=== PATIENT | female | born 1995 | race Caucasian/White ===

== ENCOUNTER → 2020-09-01 09:35 | Outpatient (CLI) | payer BC, SELFPAY ==
[2020-09-01 11:26] LABS: hCG Titer Quant., Serum 6 mIU/mL (1-3)
== END ==
PROVIDERS: PCP Family Medicine; Referring Provider Obstetrics & Gynecology; Visit Provider Obstetrics & Gynecology
DX: N91.2 Amenorrhea, unspecified (principal)
CPT/HCPCS: 36415; 84702

== ENCOUNTER → 2020-09-03 12:16 | Outpatient (CLI) | payer BC, SELFPAY ==
[2020-09-03 13:31] LABS: hCG Titer Quant., Serum 3 mIU/mL (1-3)
== END ==
PROVIDERS: PCP Family Medicine; Referring Provider Obstetrics & Gynecology; Visit Provider Obstetrics & Gynecology
DX: N91.2 Amenorrhea, unspecified (principal)
CPT/HCPCS: 36415; 84702

== ENCOUNTER → 2020-10-13 | Outpatient (CLI) | payer BC, SELFPAY ==
[2020-10-13 09:33] VITALS: BMI 26.4
[2020-10-17 16:43] LABS: HPV Reflexed? NOT INDICATED
== END | disposition home or self-care (01) ==
LOC: LABSPEC 16:32
PROVIDERS: PCP Family Medicine; Referring Provider Obstetrics & Gynecology; Visit Provider Obstetrics & Gynecology
DX: Z12.4 Encounter for screening for malignant neoplasm of cervix (principal)
CPT/HCPCS: 88175; G0145

== ENCOUNTER → 2021-05-11 12:20 | Outpatient (CLI) | payer BC, SELFPAY ==
[2021-05-11 13:38] LABS: hCG Titer Quant., Serum 462 mIU/mL (1-3)
== END ==
PROVIDERS: PCP Family Medicine; Referring Provider Obstetrics & Gynecology; Visit Provider Obstetrics & Gynecology
DX: Z34.90 Encounter for supervision of normal pregnancy, unspecified, unspecified trimester (principal)
CPT/HCPCS: 36415; 84702; 86850; 86900; 86901

== ENCOUNTER → 2021-05-13 12:18 | Outpatient (CLI) | payer BC, SELFPAY ==
[2021-05-13 13:56] LABS: hCG Titer Quant., Serum 1054 mIU/mL (1-3)
== END ==
PROVIDERS: PCP Family Medicine; Referring Provider Obstetrics & Gynecology; Visit Provider Obstetrics & Gynecology
DX: Z34.90 Encounter for supervision of normal pregnancy, unspecified, unspecified trimester (principal)
CPT/HCPCS: 36415; 84702

== ENCOUNTER → 2021-06-05 | Outpatient (CLI) | payer BC, SELFPAY ==
[2021-06-05 12:55] LABS: Amphetamine Urine VISTA NEGATIVE (<1000 ng/mL); Barbiturate Urine VISTA NEGATIVE (< 200 ng/mL); Benzodiazepine Urine VISTA NEGATIVE (< 200 ng/mL); Cocaine Urine VISTA NEGATIVE (< 300 ng/mL); Ecstacy Urine VISTA NEGATIVE (< 500 ng/mL); Methadone Urine VISTA NEGATIVE (< 300 ng/mL); PCP Urine VISTA NEGATIVE (< 25 ng/mL); THC Urine VISTA NEGATIVE (< 50 ng/mL); Vista UDS pH Range 7
[2021-06-08 01:06] LABS: Chlamydia By Nucleic Acid AMP Negative (Negative)
[2021-06-08 08:28] LABS: Gonococcus By Nucleic Acid AMP Negative (Negative)
== END | disposition home or self-care (01) ==
LOC: LABSPEC 12:12
PROVIDERS: PCP Family Medicine; Referring Provider Obstetrics & Gynecology; Visit Provider Obstetrics & Gynecology
DX: Z34.90 Encounter for supervision of normal pregnancy, unspecified, unspecified trimester (principal)
CPT/HCPCS: 80307; 87086; 87491; 87591

== ENCOUNTER → 2021-06-19 13:26 | Outpatient (CLI) | payer BC, SELFPAY ==
[2021-06-19 14:19] LABS: Absolute Lymphocyte Count 2.19 X10^3/uL (0.83-4.51); Absolute Neutrophil Count 6.3 X10^3/uL (2.0-7.7); Basophil# 0.04 X10^3/uL; Basophil% 0.4 % (0-1); Eosinophil# 0.08 X10^3/uL; Eosinophils% 0.9 % (0-5); Hematocrit 34.1 % (37-47); Hemoglobin 11.8 g/dL (12.0-15.0); Lymphocyte # 2.19 X10^3/ul (0.83-4.51); Lymphocyte % 24.3 % (19-41); Mean Corp Hgb Conc 34.6 g/dL (32-36); Mean Corpuscular Hgb 33.1 pg (27.0-32.0); Mean Corpuscular Volume 95.8 fL (81-99); Monocyte# 0.41 X10^3/uL; Monocyte% 4.5 % (0-10); NRBC Flagged by Analyzer 0 % (0-5); Neutrophil # 6.27 X10^3/uL (2.7-7.7); Neutrophil % 69.6 % (47-70); Platelet Count 255 K/mm3 (150-450); RBC Distribution Width CV 12.1 % (11.6-14.6); RBC Distribution Width SD 42.6 fl (35.1-43.9); Red Blood Count 3.56 M/mm3 (4.2-5.4)
[2021-06-19 14:37] LABS: NATERA MAILED SPECIMEN
[2021-06-19 15:36] LABS: HIV - WCH Non-Reactive (Nonreactive); Hepatitis B Surface Antigen Non-Reactive (Nonreactive); Hepatitis C Antibody Non-Reactive (Nonreactive); Rubella IgG Reactive (Nonreactive); Syphilis Antibodies Non-reactive
== END ==
PROVIDERS: PCP Family Medicine; Referring Provider Obstetrics & Gynecology; Visit Provider Obstetrics & Gynecology
DX: Z34.90 Encounter for supervision of normal pregnancy, unspecified, unspecified trimester (principal)
CPT/HCPCS: 36415; 85025; 86703; 86762; 86780; 86803; 86850; 86900; 86901; 87340

== ENCOUNTER 2021-10-23 12:18 | Outpatient (CLI) | payer BC, OTHER, SELFPAY ==
[2021-10-23 12:47] LABS: Absolute Lymphocyte Count 1.63 X10^3/uL (0.83-4.51); Absolute Neutrophil Count 6.4 X10^3/uL (2.0-7.7); Basophil# 0.03 X10^3/uL; Basophil% 0.3 % (0-1); Eosinophil# 0.16 X10^3/uL; Eosinophils% 1.8 % (0-5); Hematocrit 31.9 % (37-47); Hemoglobin 10.9 g/dL (12.0-15.0); Lymphocyte # 1.63 X10^3/ul (0.83-4.51); Lymphocyte % 18.6 % (19-41); Mean Corp Hgb Conc 34.2 g/dL (32-36); Mean Corpuscular Hgb 32.3 pg (27.0-32.0); Mean Corpuscular Volume 94.7 fL (81-99); Mean Platelet Vol. 9.9 fl (6.2-12.0); Monocyte# 0.48 X10^3/uL; Monocyte% 5.5 % (0-10); NRBC Flagged by Analyzer 0 % (0-5); Neutrophil # 6.41 X10^3/uL (2.7-7.7); Neutrophil % 73.1 % (47-70); Platelet Count 214 K/mm3 (150-450); RBC Distribution Width CV 13.9 % (11.6-14.6); Red Blood Count 3.37 M/mm3 (4.2-5.4); White Blood Count 8.8 K/mm3 (4.4-11.0)
[2021-10-23 13:01] LABS: Glucose Challenge Gest 1H 50g 145 mg/dL (70-140)
== END 2021-10-23 23:59 | disposition home or self-care (01) ==
LOC: LAB 12:20
PROVIDERS: PCP Family Medicine; Visit Provider Obstetrics & Gynecology
DX: O36.0990 Maternal care for other rhesus isoimmunization, unspecified trimester, not applicable or unspecified (principal)
CPT/HCPCS: 36415; 82950; 85025; 86850; 86900; 86901

== ENCOUNTER 2021-10-26 06:49 | Outpatient (CLI) | payer BC, OTHER, SELFPAY ==
[2021-10-26 07:48] LABS: Glucose GTT-Gestation. Fasting 73 mg/dL (<105)
[2021-10-26 08:42] LABS: Glucose GTT-Gestational 1 Hr 192 mg/dL (<190)
[2021-10-26 10:18] LABS: Glucose GTT-Gestational 2 Hr 168 mg/dL (<165)
[2021-10-26 10:50] LABS: Glucose GTT-Gestational 3 Hr 121 L (<145)
== END 2021-10-26 23:59 | disposition home or self-care (01) ==
LOC: LAB 06:50
PROVIDERS: PCP Family Medicine; Referring Provider Obstetrics & Gynecology; Visit Provider Obstetrics & Gynecology
DX: O99.810 Abnormal glucose complicating pregnancy (principal)
CPT/HCPCS: 36415; 82951; 82952

== ENCOUNTER 2021-11-03 08:10 | Outpatient (RCR) | payer BC, OTHER, SELFPAY | END 2021-11-12 23:59 | LOC: NS 08:10 | PROVIDERS: PCP Family Medicine; Referring Provider Nurse Practitioner Women's Health; Visit Provider Nurse Practitioner Women's Health | DX: Z71.3 Dietary counseling and surveillance (principal); O24.419 Gestational diabetes mellitus in pregnancy, unspecified control; Z3A.00 Weeks of gestation of pregnancy not specified | CPT/HCPCS: 97802 ==

== ENCOUNTER 2021-11-20 07:42 | Outpatient (CLI) | payer BC, OTHER, SELFPAY ==
--- NOTE | 2021-11-20 07:46 | US_ITS ---
STUDY: SECOND AND THIRD TRIMESTER OBSTETRICAL ULTRASOUND - LIMITED REASON FOR EXAM: Female, 26 years old growth LMP: 04/09/2021. PRIOR ULTRASOUND: None. TECHNIQUE: Transabdominal TECHNICAL QUALITY: Adequate. FINDINGS: There is a single intrauterine fetus. The fetus is in a cephalic presentation. There is demonstrated cardiac activity with a heart rate of 145 bpm. There is a normal amniotic fluid volume. The largest amniotic fluid pocket measures 5.1 cm. The amniotic fluid index (AUSTIN) is 18.9 cm. The placenta is anterior in location and is not low lying. There are Grade 1 placental changes. The cervix measures 4.5 cm in length. BIOMETRY: BPD: 8.6 cm: 34 weeks, 5 days HC: 30.7 cm: 34 weeks, 1 days AC: 29.6 cm: 33 weeks, 3 days FL: 6.3 cm: 32 weeks, 2 days Age by LMP: 32 weeks, 1 days. OLGA by LMP: 01/15/2020. age by current US: 33 weeks, 3 days. OLGA by current US: 01/05/2022. Estimated weight: 2210 grams, +/- 331 grams, 81 percentile. US/OB Limited With Biometrics IMPRESSION: Single live intrauterine gestation with a mean gestational age of 33 weeks and 3 days. Electronically Signed: Jacob Walker MD at 9:01 EDT ,
== END 2021-11-20 23:59 | disposition home or self-care (01) ==
LOC: OPUS 07:45
PROVIDERS: PCP Family Medicine; Visit Provider Obstetrics & Gynecology
DX: O98.519 Other viral diseases complicating pregnancy, unspecified trimester (principal); U07.1 COVID-19
CPT/HCPCS: 76816

== ENCOUNTER 2021-11-30 08:30 | Outpatient (RCR) | payer BC, OTHER, SELFPAY | END 2021-12-12 23:59 | LOC: DC 08:30 | PROVIDERS: PCP Family Medicine; Referring Provider Nurse Practitioner Women's Health; Visit Provider Nurse Practitioner Women's Health | DX: Z71.3 Dietary counseling and surveillance (principal); O24.419 Gestational diabetes mellitus in pregnancy, unspecified control | CPT/HCPCS: 97803 ==

== ENCOUNTER → 2021-12-17 | Outpatient (CLI) | payer BC, OTHER, SELFPAY ==
--- NOTE | 2021-12-17 08:47 | US_ITS ---
STUDY: SECOND AND THIRD TRIMESTER OBSTETRICAL ULTRASOUND - LIMITED REASON FOR EXAM: Female, 26 years old growth LMP: 04/09/2021. PRIOR ULTRASOUND: Comparison is made with prior study dated 11/20/2021. TECHNIQUE: Transabdominal TECHNICAL QUALITY: Adequate. FINDINGS: There is a single intrauterine fetus. The fetus is in a cephalic presentation. There is demonstrated cardiac activity with a heart rate of 144 bpm. There is a normal amniotic fluid volume. The largest amniotic fluid pocket measures 4.8 cm. The amniotic fluid index (AUSTIN) is 13.3 cm. The placenta is anterior in location and is not low lying. There are Grade 2 placental changes. The cervix was not measured due to head position. BIOMETRY: BPD: 9.2 cm: 37 weeks, 2 days HC: 33.5 cm: 30 weeks, 2 days AC: 32.6 cm: 36 weeks, 3 days FL: 7.1 cm: 36 weeks, 1 days Age by LMP: 36 weeks, 0 days. OLGA by LMP: 01/14/2022. age by prior US: 37 weeks, 2 days. OLGA by prior US: 01/05/2022. age by current US: 37 weeks, 0 days. OLGA by current US: 01/07/2022. Estimated weight: 3017grams, +/- 453 grams, 71 percentile. US/OB Limited With Biometrics IMPRESSION: Single live intrauterine gestation with a mean gestational age of 37 weeks and 2 days. Measurements obtained today fall within the normal expected range. Electronically Signed: Jacob Walker MD at 10:40 EDT ,
== END | disposition home or self-care (01) ==
LOC: OPUS 08:46
PROVIDERS: PCP Family Medicine; Visit Provider Obstetrics & Gynecology
DX: O98.519 Other viral diseases complicating pregnancy, unspecified trimester (principal); U07.1 COVID-19
CPT/HCPCS: 76816

== ENCOUNTER → 2021-12-18 | Outpatient (CLI) | payer BC, OTHER, SELFPAY | END | disposition home or self-care (01) | PROVIDERS: PCP Family Medicine; Visit Provider Obstetrics & Gynecology | DX: Z34.90 Encounter for supervision of normal pregnancy, unspecified, unspecified trimester (principal) | CPT/HCPCS: 87081 ==

== ENCOUNTER 2022-01-14 18:35 | Inpatient (IN) | payer BC, OTHER, SELFPAY ==
[2022-01-14] VITALS (31 sets, daily range): BP systolic 92–131; BP diastolic 51–79; PULSE 87–107; TEMP 36.6–37.1; O2SAT 85–100; BMI 27.6
--- NOTE | 2022-01-14 17:19 | OB.TRI.PN_ITS ---
Progress Notes Date of Service: 01/14/22 Progress Note: Patient presents for triage evaluation secondary to contractions FHT: 130 Moderate variability reactive no decelerations category I tracing [place]: irregular Contractions Assessment and plan: false labor Reactive NST, reassuring maternal and status patient discharged to home to follow-up for IOL tomorrow. See problem list details for additional plan information. Charges/Coding Procedures Urinary/Genital [id number]: 40199-83 non-stress test Interp
[2022-01-14] MEDS: Lactated Ringers 500 ML 999 ML IV (18:45)
[2022-01-14 19:01] LABS: Absolute Lymphocyte Count 0.85 X10^3/uL (0.83-4.51); Absolute Neutrophil Count 10.9 X10^3/uL (2.0-7.7); Basophil# 0.02 X10^3/uL; Basophil% 0.2 % (0-1); Eosinophil# 0.01 X10^3/uL; Eosinophils% 0.1 % (0-5); Hematocrit 42.5 % (37-47); Hemoglobin 14.5 g/dL (12.0-15.0); Lymphocyte # 0.85 X10^3/ul (0.83-4.51); Mean Corp Hgb Conc 34.1 g/dL (32-36); Mean Corpuscular Hgb 33.1 pg (27.0-32.0); Mean Platelet Vol. 10.8 fl (6.2-12.0); Monocyte# 0.33 X10^3/uL; Monocyte% 2.7 % (0-10); NRBC Flagged by Analyzer 0 % (0-5); Neutrophil # 10.87 X10^3/uL (2.7-7.7); Neutrophil % 89.6 % (47-70); Platelet Count 202 K/mm3 (150-450); RBC Distribution Width SD 46.6 fl (35.1-43.9); Red Blood Count 4.38 M/mm3 (4.2-5.4); White Blood Count 12.1 K/mm3 (4.4-11.0)
[2022-01-14 19:06] LABS: Bedside Glucose 91 mg/dL (74-106)
[2022-01-14] MEDS: Lactated Ringers 1,000 ML 200 ML IV ×2 (19:20→22:40)
[2022-01-14] MEDS: fentaNYL-bupivacaine (epidural) 100 ML BAG EPIDURAL (19:48)
--- NOTE | 2022-01-14 20:37 | HP.PCM.OB_ITS ---
HPI - General General Date of Admission: 01/14/22 HPI Narrative SURY KUMAR, is a 26 F who presents IAL 5 cm dilated regular ctx no vb lof admits good fm Maternal Data Information OLGA Calculator Estimated Delivery Date Method Current WG Current Estimate 01/14/22 Ultrasound #1 40w 0d Other Estimates 01/06/22 LMP (Certain) 41w 1d PFSH PFSH Medical History Lab test positive for detection of COVID-19 virus Home Medications multivitamin no.47-iron fum 27 mg-folate no.1 1 mg-dha 300 mg capsule 1 cap PO DAILY 05/22/21 [History Last Taken 01/13/22 21:00] Allergy/AdvReac Type Severity Reaction Status Date / Time No Known Allergies Allergy Verified 01/08/22 16:08 Family History Grandfather Diabetes Father Hypertension Surgical History H/O wisdom tooth extraction History of tonsillectomy Social History household members: spouse housing: house current occupational status: employed current occupation: [employer] Smoking Status: Never smoker second hand exposure: No alcohol intake: current details: social substance use type: does not use caffeine: Yes what type of physical activity do you participate in: walking seatbelt use: always do you feel safe at home: Yes 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 History 2 Elective abortions Hx Para 0 Spontaneous abortions 1 Hx # Term Pregnancies Ectopic pregnancies Hx # Pregnancies Multiple births # of living children 0 Visit Details Expected Delivery Route/Plan Labor Preferences- CB/BF classes: signed up labor support person: Jack labor intervention preferences: minimal if able pain management options preferred: minimal but open to anything, no issues with epidural cut cord/dad catch: yes : yes PP control planned: discussed possible routes of delivery and associated risks: discussed possible delivery modalities and possible indications for each including R/B/A of , VAVD, and CS. questions answered. special requests: Plans Covid status: counseled regarding risk of covid in vs vaccination and declined vaccination Flu vaccine: given Tdap vaccine: given Rhogam: given LARC form signed: declined movement and labor precautions reviewed. Problem list reviewed and updated with the most current plan of care details and appropriate orders placed. Relevant counseling for the gestational age provided. Continue routine care and follow up unless otherwise noted in visit notes/problem list details OB Flowsheet Initial Weight: 130 lb Date -?-?-?-?-?-?-?-?-?-?-?-?- EGA Weight BP Urine Prot -?-?-?-?-?-?-?-?-?-?-?-?- Glucose FHR FuHt Pres Dilation -?-?-?-?-?-?-?-?-?-?-?-?- Effaced St Visit Note 06/05/21 -?-?-?-?-?-?-?-?-?-?-?-?- 8w 1d 132 lb (+2 lb) 114/66 -?-?-?-?-?-?-?-?-?-?-?-?- 160 -?-?-?-?-?-?-?-?-?-?-?-?- SM- crl NOT con with lmp 1.5 cm 06/26/21 -?-?-?-?-?-?-?-?-?-?-?-?- 11w 1d 132 lb 6 oz (+2 lb 6 oz) 110/68 Negative -?-?-?-?-?-?-?-?-?-?-?-?- Negative 168 -?-?-?-?-?-?-?-?-?-?-?-?- JV- normal nater a. no lof ,vaginal bleeding, or spotting, 07/24/21 -?-?-?-?-?-?-?-?-?-?-?-?- 15w 1d 134 lb (+4 lb) 100/60 Negative -?-?-?-?-?-?-?-?-?-?-?-?- Negative 147 -?-?-?-?-?-?-?-?-?-?-?-?- JV- pt had covid since last seen. now on baby asa, plan for anatomy scan on 08/20. then growth scans at 32 and 36 weeks. 08/21/21 -?-?-?-?-?-?-?-?-?-?-?-?- 19w 1d 135 lb (+5 lb) 94/58 Negative -?-?-?-?-?-?-?-?-?-?-?-?- Negative 145 -?-?-?-?-?-?-?-?-?-?-?-?- JV- pt is having a hard time sleeping. anatomy scan reviewed ad is normal. 09/18/21 -?-?-?-?-?-?-?-?-?-?-?-?- 23w 1d 142 lb 6 oz (+12 lb 6 oz) 96/70 Negative -?-?-?-?-?-?-?-?-?-?-?-?- Negative 149 -?-?-?-?-?-?-?-?-?-?-?-?- JV- no lof, vagi nal bleeding, and + FM 10/23/21 -?-?-?-?-?-?-?-?-?-?-?-?- 28w 1d 143 lb (+13 lb) 97/68 Negative -?-?-?-?-?-?-?-?-?-?-?-?- Negative 145 28 -?-?-?-?-?-?-?-?-?-?-?-?- Sm- no vb lof go od fm, no regular ctx 10/26/21 -?-?-?-?-?-?-?-?-?-?-?-?- 28w 4d 141 lb 4 oz (+11 lb 4 oz) -?-?-?-?-?-?-?-?-?-?-?-?- -?-?-?-?-?-?-?-?-?-?-?-?- 10/30/21 -?-?-?-?-?-?-?-?-?-?-?-?- 29w 1d 141 lb (+11 lb) 102/70 Negative -?-?-?--?-?-?-?-?-?-?-?-?- Negative 140 30 -?-?-?-?-?-?-?-?-?-?-?-?- SM- no vb lof go od fm no reuglar ctx discussed BS well controlled already, has nutrition and endocrine appointments scheduled 11/13/21 -?-?-?-?-?-?-?-?-?-?-?-?- 31w 1d 145 lb (+15 lb) 118/60 Negative -?-?-?-?-?-?-?-?-?-?-?-?- Negative 134 31 -?-?-?-?-?-?-?-?-?-?-?-?- JV- no fluid on exam. pt was leaking last night but only for a brief moment, 11/27/21 -?-?-?-?-?-?-?-?-?-?-?-?- 33w 1d 144 lb 6 oz (+14 lb 6 oz) 104/70 Negative -?-?-?-?-?-?-?-?-?-?-?-?- Negative 135 33 -?-?-?-?-?-?-?-?-?-?-?-?- SM- no vb lof go od fm n oreular ctx. BS controlled with diet 12/11/21 -?-?-?-?-?-?-?-?-?-?-?-?- 35w 1d 145 lb (+15 lb) 112/62 Negative -?-?--?-?-?-?-?-?-?-?-?-?- Negative 135 35 -?-?-?-?-?-?-?-?-?-?-?-?- Sm- no vb lof go od fm n oregulr ctx discussed cb classes 12/18/21 -?-?-?-?-?-?-?-?-?-?-?-?- 36w 1d 145 lb 4 oz (+15 lb 4 oz) 114/80 Negative -?-?-?-?-?-?-?-?-?-?-?-?- Negative 145 36 -?-?-?-?-?-?-?-?-?-?-?-?- JV-no lof, vagin al bleeding, or dec fm. GBS collected. 12/25/21 -?-?-?-?-?-?-?-?-?-?-?-?- 37w 1d 144 lb 4 oz (+14 lb 4 oz) 100/72 Negative -?-?-?-?-?-?-?-?-?-?-?-?- Negative 145 37 0 -?-?-?-?-?-?-?-?-?-?-?-?- JV- GBS neg. no lof, vaginal bleeding, or dec fm. no complaints. 01/01/22 -?-?-?-?-?-?-?-?-?-?-?-?- 38w 1d 146 lb (+16 lb) 120/67 -?-?-?-?-?-?-?-?-?-?-?-?- 140 38 Cephalic 0.5 -?-?-?-?-?-?-?-?-?-?-?--?- 50 -2 SM- no vb lof good fm n oregualr ctx 01/08/22 -?-?-?-?-?-?-?-?-?-?-?-?- 39w 1d 149 lb (+19 lb) 118/70 Negative -?-?-?-?-?-?-?-?-?-?-?-?- Negative 145 39 Cephalic 1 -?-?-?-?-?-?-?-?-?-?-?-?- 50 -2 JV- no lof , vaginal bleeding, or dec fm. plan for IOL at 40 weeks. 01/14/22 -?-?-?-?-?-?-?-?-?-?-?-?- 40w 0d 146 lb 6.191 oz (+16 lb 6.191 oz) 122/79 128/72 107/54 100/51 92/53 97/61 96/59 98/53 103/56 100/57 101/58 -?-?-?-?-?-?-?-?-?-?-?-?- -?-?-?-?-?-?-?-?-?-?-?-?- NST FHR Rate Baby A Baseline: 140 Variability:: Moderate Accelerations:: 15 x 15 Decelerations:: None NST Reactive:: Yes FHR Category:: Category I Uterine Activity:: q3-5 ROS Constitutional Constitutional: Reports systems reviewed and no addt'l complaints, except as documented ENT HEENT: Reports systems reviewed and no addt'l complaints, except as documented Cardiovascular Cardiovascular: Reports systems reviewed and no addt'l complaints, except as documented Respiratory/Chest Respiratory/Chest: Reports systems reviewed and no addt'l complaints, except as documented Gastrointestinal Gastrointestinal: Reports systems reviewed and no addt'l complaints, except as documented and nausea; Denies abdominal pain Genitourinary Genitourinary: Reports systems reviewed and no addt'l complaints, except as documented, contractions Details: present and frequency (regular ) and movement Details: present Musculoskeletal Musculoskeletal: Reports systems reviewed and no addt'l complaints, except as documented Integumentary Integumentary: Reports as per HPI Neurologic Neurologic: Reports systems reviewed and no addt'l complaints, except as documented Endocrine Endocrinology: Reports systems reviewed and no addt'l complaints, except as docu mented Vital Signs Vital Signs Vital Signs: 01/14/22 10:49 01/14/22 10:50 01/14/22 18:44 Temperature 97.9 F 98.3 F Temperature Source Temporal Pulse Rate 89 Blood Pressure 122/79 H BP Systolic 122 BP Diastolic 79 Pulse Ox 96 01/14/22 19:00 01/14/22 19:05 01/14/22 19:10 Temperature Temperature Source Pulse Rate 94 89 96 Blood Pressure BP Systolic BP Diastolic Pulse Ox 97 99 99 01/14/22 19:11 01/14/22 19:15 01/14/22 19:20 Temperature Temperature Source Pulse Rate 95 89 100 Blood Pressure 128/72 H BP Systolic 128 BP Diastolic 72 Pulse Ox 98 100 01/14/22 19:23 01/14/22 19:25 01/14/22 19:30 Temperature Temperature Source Pulse Rate 91 105 H 104 H Blood Pressure 107/54 L 100/51 L 92/53 L BP Systolic 107 100 92 BP Diastolic 54 51 53 Pulse Ox 99 98 01/14/22 19:35 01/14/22 19:37 01/14/22 19:40 Temperature Temperature Source Pulse Rate 101 H 100 94 Blood Pressure 97/61 96/59 L BP Systolic 97 96 BP Diastolic 61 59 Pulse Ox 97 97 01/14/22 19:45 01/14/22 19:50 01/14/22 19:52 Temperature Temperature Source Pulse Rate 96 97 90 Blood Pressure 98/53 L 103/56 L BP Systolic 98 103 BP Diastolic 53 56 Pulse Ox 99 99 01/14/22 19:55 01/14/22 20:00 01/14/22 20:05 Temperature Temperature Source Pulse Rate 97 93 93 Blood Pressure 100/57 L BP Systolic 100 BP Diastolic 57 Pulse Ox 100 97 97 01/14/22 20:10 01/14/22 20:28 Temperature Temperature Source Pulse Rate 93 87 Blood Pressure 101/58 L BP Systolic 101 BP Diastolic 58 Pulse Ox 100 Weight Weight: 146 lb 6.191 oz Body Mass Index (BMI) 27.6 Physical Exam Const alert, oriented x3 and healthy appearing Constitutional Narrative: uncomfortable with contractions HEENT normocephalic and moist oral mucous membranes Head and Scalp: atraumatic Neck full ROM, no lymphadenopathy, supple and thyroid normal General: trachea midline Thyroid: thyroid normal Lymph Lymphatic: no lymphadenopathy noted Chest inspection of chest normal Resp normal respiratory effort Cardio regular rate GI normal to inspection, nondistended, normoactive bowel sounds, soft to palpation and non-tender Inspection: gravid external exam normal Bimanual Exam - Vag & Uterus: uterus non-tender Manual OB Exam: estimated gestational size appropriate, presentation cephalic, dilated, effaced and station Extremity normal to inspection General Extremity: Negative for edema Skin no rashes or lesions noted Neuro deep tendon reflexes 2+ bilaterally Motor Exam: strength 5/5 throughout and clonus absent Psych mental status grossly normal Labs Labs Labs: Blood Type O NEGATIVE Antibody Screen NEGATIVE Hct 42.5 % (37-47) Hgb 14.5 g/dL (12.0-15.0) Pap Smear Negative Obstetrics US Syphilis Total Ab Non-reactive Rubella IgG Antibody Reactive (Nonreactive) Hep Bs Antigen Non-Reactive (Nonreactive) Chlamydia DNA (KARENA) Negative (Negative) Neisseria gonorrhoeae DNA (KARENA) Negative (Negative) HIV 1&2 Antibody Non-Reactive (Nonreactive) Glucose 1 Hr 50 gm 145 mg/dL (70-140) H Assessment & Plan (1) : QUALIFIERS: Weeks of gestation: 37 weeks Qualified Code(s): Z3A.37 - 37 weeks gestation of COMMENT: GBS negative, genetic low risk- does not want to know gender and carrier. Anatomy US normal (2) Supervision of normal : COMMENT: PRR OLGA: 01/14/22 surprise Spouse: Jack (3) Rh negative status during : COMMENT: O neg- RHOGAM PRN & 28 weeks (4) Lab test positive for detection of COVID-19 virus: COMMENT: daily asa and growth US 32 & 36 wk, nl growth US (5) Gestational diabetes: QUALIFIERS: Gestational diabetes mellitus control: diet-controlled Trimester: third trimester Qualified Code(s): O24.410 - Gestational diabetes mellitus in , diet controlled COMMENT: endocrine cs. diet controlled. (6) Active labor at term: PLAN: Patient presents IAL, plan expectant management for , pitocin PRN. arom meconium fluid Pain management: plans epidural. GBS neg. Management of any complications: diabetes- check BS q 1 hr I have reviewed the PFS and made any clinically relevant updates.
[2022-01-14 21:16] LABS: Bedside Glucose 91 mg/dL (74-106)
[2022-01-14 22:35] LABS: Bedside Glucose 85 mg/dL (74-106)
[2022-01-14] MEDS: Lactated Ringers 500 ML 200 ML IV (23:15)
[2022-01-14 23:45] LABS: Bedside Glucose 86 mg/dL (74-106)
[2022-01-15] VITALS (26 sets, daily range): BP systolic 102–125; BP diastolic 42–78; PULSE 80–114; RESP 16–17; TEMP 36.3–36.9; O2SAT 97–100
[2022-01-15 00:35] LABS: Bedside Glucose 93 mg/dL (74-106)
[2022-01-15 01:25] LABS: Bedside Glucose 96 mg/dL (74-106)
[2022-01-15] MEDS: Oxytocin 30 units/NS 500 ml 30 UNITS/500 ML IV.SOLN IV (01:29)
[2022-01-15] MEDS: fentaNYL-bupivacaine (epidural) 100 ML BAG EPIDURAL (01:30)
[2022-01-15] MEDS: Lactated Ringers 500 ML 200 ML IV (02:02)
[2022-01-15 04:11] LABS: Bedside Glucose 87 mg/dL (74-106)
[2022-01-15 04:11] LABS: Bedside Glucose 83 mg/dL (74-106)
--- NOTE | 2022-01-15 04:47 | EX.PCM.OBRPT ---
Assessment & Plan (1) Gestational diabetes: QUALIFIERS: Gestational diabetes mellitus control: diet-controlled Trimester: third trimester Qualified Code(s): O24.410 - Gestational diabetes mellitus in , diet controlled COMMENT: endocrine cs. diet controlled. (2) Rh negative status during : COMMENT: O neg- RHOGAM PRN & 28 weeks (3) Supervision of normal : COMMENT: PRR OLGA: 01/14/22 surprise Spouse: Jack (4) : QUALIFIERS: Weeks of gestation: 37 weeks Qualified Code(s): Z3A.37 - 37 weeks gestation of COMMENT: GBS negative, genetic low risk- does not want to know gender and carrier. Anatomy US normal (5) Lab test positive for detection of COVID-19 virus: COMMENT: daily asa and growth US 32 & 36 wk, nl growth US (6) Active labor at term: (7) Vaginal delivery: COMMENT: SM IAL 40 GDMA1 Maternal Data Information OLGA Calculator Estimated Delivery Date Method Current WG Current Estimate 01/14/22 Ultrasound #1 40w 1d Other Estimates 01/06/22 LMP (Certain) 41w 2d Vaginal Delivery Operative Information Date of Procedure: 01/15/22 Pre-Operative Diagnosis: IAL Post-Operative Diagnosis: same Surgery / Procedure Performed: Spontaneous Vaginal Delivery Type of Anesthesia: Epidural Special Medications: none Estimated Blood Loss: 100 Fluids Replaced: crystalloid Findings Description of Procedure: Patient began pushing and delivered the head in the CARYL presentation. The head was delivered atraumatically and a loose nuchal cord ?1 was identified and the infant delivered through without complication. The anterior and posterior shoulders delivered without complication followed by the rest of the and the was placed on the maternal abdomen. Delayed cord clamping was employed for approximately 60 seconds. Cord was clamped and cut and gentle traction was applied to the cord and the placenta delivered spontaneously immediately following it was noted to be intact with three-vessel cord. The perineum and vagina were inspected and noted to have a first degree laceration repaired in the usual fashionw ith 3-0 rapide. EBL was 100 cc. Patient and tolerated delivery well. Presentation: CARYL Amniotic Membrane Rupture Type: Artificial Amniotic Fluid Description: Clear Placental Delivery Description: Spontaneous Placenta Disposition: [facility] Cord Vessel Description: 3 Vessels Cord Entanglement: Around neck x 1, loose Delayed Cord Clamping: Yes Post Vaginal Delivery Medications Given After Delivery: IV Pitocin Episiotomy Description: Perineal Extension/lac and 1st degree Laceration: None Complication Complications: None Procedures Urinary/Genital 52xxx-59xxx: [id number] Vaginal Delivery [facility]
--- NOTE | 2022-01-15 04:50 | PCM.DC ---
Discharge Instructions Diet Discharge Diet: No restrictions Activity Discharge Activity: Return to Normal Activity, May Not Drive (while taking narcotic pain medications.) and May Shower May resume sexual activity in: 4-6 weeks Dressing / Incision Call your doctor if your incision/area has: Continuous Slow Oozing, Sudden Increased Bleeding, Increased Pain/ Swelling, Increased Redness and Foul Smelling Discharge Follow Up Care Please Follow Up With: Cynthia Okeefe MD When: Call [phone] to make an appointment with your doctor in 6 weeks. If you had elevated blood pressure or 4th degree laceration, you will need to be seen in 2 weeks. Test Results: Test results from this visit will be discussed in further detail at your follow-up appointment, if applicable. Discharge Plan Admission Admit Date/Time: 01/14/22 18:35 Attending Provider: Cynthia Okeefe Primary Care Provider: Fantasma Figueroa Instructions Patient Instructions: Kick Counts, ED False Labor, OB Triage: Return to Hospital or Notify Physician if you Experience: Discharge Orders/Prescriptions Prescriptions: No Action PNV-DHA 27 mg iron-1 mg -300 mg capsule 1 cap PO DAILY RF: 0 Referrals / Follow Up: Fantasma Figueroa MD [Primary Care Provider] - Disposition Disposition (needs filled in before D/C Order can be placed): Home, Self Care
[2022-01-15] MEDS: Oxytocin 30 units/NS 500 ml 30 UNITS/500 ML IV.SOLN 334 UNITS IV (05:15)
[2022-01-15 05:51] LABS: Bedside Glucose 93 mg/dL (74-106)
[2022-01-15 05:51] LABS: Bedside Glucose 87 mg/dL (74-106)
[2022-01-15] MEDS: 0.9% Saline Lock 10 ML Syringe IV (08:07)
[2022-01-15] MEDS: Senna/Docusate Sodium 1 Tablet PO (12:56)
[2022-01-15] MEDS: Naproxen 500 MG Tablet PO (12:56)
[2022-01-15] MEDS: Dibucaine 30 GM Tube 1 APPLIC TOPICAL (12:56)
[2022-01-16] MEDS: Naproxen 500 MG Tablet PO ×2 (00:17→08:28)
[2022-01-16 00:18] VITALS: BP 104/63; PULSE 84; RESP 16; TEMP 36.6
[2022-01-16 03:44] VITALS: BP 104/63; PULSE 83; RESP 16; TEMP 36.6
[2022-01-16 06:00] LABS: Bedside Glucose 74 mg/dL (74-106)
[2022-01-16 08:15] VITALS: BP 96/51; PULSE 84; RESP 16; TEMP 35.9
--- NOTE | 2022-01-16 09:52 | PCM.PN.OB ---
Subjective Subjective Patient doing well without complaints. Tolerating PO. Ambulating and voiding without difficulty. Feeding well. Denies chest pain, shortness of breath, calf pain/swelling, fevers, chills, lightheadedness. Objective Data Objective Data Vital Signs: Vital Signs Temp Pulse Resp BP Pulse Ox 96.7 F L 84 16 96/51 L 98 01/16/22 08:15 01/16/22 08:15 01/16/22 08:15 01/16/22 08:15 01/15/22 15:47 Oxygen Delivery Method Room Air Weight: 146 lb 6.191 oz Body Mass Index (BMI) 27.6 Intake & Output: Intake and Output for Last 24 Hours 01/14/22 01/15/22 01/16/22 23:59 23:59 23:59 Intake Total 1500.00 / 1500.00 2501.73 / 2501.73 Output Total 400 / 400 1650 / 1650 Balance 1100.00 / 1100.00 851.73 / 851.73 Lab / Micro Data Result Diagrams: 01/14/22 18:45 Labs: Laboratory Results - last 24 hr 01/16/22 05:49: POC Glucose 74 Micro: Microbiology 01/14/22 18:45 Nasal Secretion SARS-CoV-2 Antigen (Rapid) - Final ROS Constitutional Constitutional: Denies chills, fatigue, fever(s), poor appetite or weakness Eyes Eyes: Denies blurry vision, change in vision, seeing flashes or spots in vision ENT HEENT: Denies dizziness, headache(s), loss taste/smell or sore throat Cardiovascular Cardiovascular: Denies chest pain, dizziness, dyspnea, irregular heart rhythm, palpitations or rapid heart rate Respiratory/Chest Respiratory/Chest: Denies chest tightness, cough, dyspnea or breast pain Gastrointestinal Gastrointestinal: Denies abdominal pain, constipation or vomiting Genitourinary Genitourinary: Denies dysuria or flank pain Musculoskeletal Musculoskeletal: Denies difficulty walking, joint pain, limited range of motion or numbness Neurologic Neurologic: Denies abnormal movements, abnormal speech, dizziness, numbness, seizure-like activity or syncope Psychiatric Psychiatric: Denies anxiety, behavioral changes, change in appetite, confusion, depression or suicidal thoughts Physical Exam Const alert, oriented x3 and no apparent distress General Appearance: cooperative and comfortable Resp normal respiratory effort Cardio regular rate GI normal to inspection, nondistended, normoactive bowel sounds GI Narrative: uterus is firm below umbilicus Palpation: soft Bimanual Exam - Adnexa, Other: Negative for cul-de-sac fullness Back/Spine no CVA tenderness and thoraco-lumbar ROM normal Extremity normal to inspection, no clubbing, cyanosis or edema, no calf tenderness and no pedal edema Psych mental status grossly normal, thought process normal, cooperative, affect normal, speech normal, activity/motor behavior normal, denies homicidal ideation and denies suicidal ideation Assessment & Plan (1) Vaginal delivery: COMMENT: IAL 40 GDMA1 (2) Gestational diabetes: QUALIFIERS: Gestational diabetes mellitus control: diet-controlled Trimester: third trimester Qualified Code(s): O24.410 - Gestational diabetes mellitus in , diet controlled COMMENT: endocrine cs. diet controlled. (3) Rh negative status during : COMMENT: O neg- RHOGAM PRN & 28 weeks PLAN: s/p PPD # 1 1. routine post delivery care 2. breast feeding- support given 3. rh positive 4. rubella immune 5. pt would like to be discharge to home today
[2022-01-16 14:00] VITALS: BP 110/57; PULSE 80; RESP 16; TEMP 35.9
== END 2022-01-16 14:25 | disposition home or self-care (01) | DRG 807 ==
PROVIDERS: Admitting Provider Obstetrics & Gynecology; PCP Family Medicine; Referring Provider Obstetrics & Gynecology; Visit Provider Obstetrics & Gynecology
DX: O24.420 Gestational diabetes mellitus in childbirth, diet controlled (principal); Z37.0 Single live birth; O69.81X0 Labor and delivery complicated by cord around neck, without compression, not applicable or unspecified; Z3A.37 37 weeks gestation of pregnancy; O70.0 First degree perineal laceration during delivery; Z86.16 Personal history of COVID-19
CPT/HCPCS: 59025; 59050; 82962; 85025; 86850; 86900; 86901; 87811; 99218; J7120; A4216; G0378

== ENCOUNTER 2022-09-30 12:30 | Outpatient (RCR) | payer BC, OTHER, SELFPAY ==
--- NOTE | 2022-07-30 08:42 | HP.PTEVAL_ITS ---
Patient's Visit Information SURY KUMAR is a 27 year old F referred to Physical Therapy by Dr. Cynthia Okeefe MD with a diagnosis of PELVIC FLOOR DYSFUNCTION/DISORDER OF MUSCLE. Date of Evaluation: 07/30/22 Physical Therapist: Carmelita Martinez, PT, Cert MDT - Visit Plan Frequency: 1x/Week Duration: 8-10 Plan: *CHECK AUTH*. PELVIC FLOOR STRENGTHENING. URINARY RETENTION, URGE AND FREQUENCY EDUCATION. HEALTHY BLADDER HABBIT EDUCATION. TRAINING IN COORDINATION OF PELVIC FLOOR MUSCULATURE WITH HIP AND CORE (TRANSVERSE ABDOMINUS) MUSCULATURE. POSTURE CORRECTION/STRENGTHENING. CORE STRENGTHENING. GODWIN LE ROM, STRETCHING AND STRENGTHENING. TRAINING IN ABDOMINAL CAVITY PRESSURE MGMT WITH ADL'S. 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 Present symptoms: PATIENT REPORTS SHE IS HERE DUE TO HAVING A LOT OF LEAKING. WAS REALLY BAD FOR ABOUT 1-2 MONTHS AFTER DELIVERING BABY ABOUT 6 MONTHS AGO. PATIENT ALSO REPORTS THAT WHEN SHE HAS THE URGE TO GO SHE CAN'T ALWAYS MAKE IT TO THE BATHROOM IN TIME. Pain Scale: NO. Is it getting better, worse or staying the same: BETTER THAN IT WAS BUT STAYING THE SAME NOW. Commenced as a result of: /DELIVERY. Symptoms at onset: LOSS OF BLADDER CONTROL. Worse: LEAKING WITH - LIFTING CAR SEAT, LIFTING GROCERIES, COUGHING, SNEEZING, RUNNING, BLOWING NOSE. Better: NOTHING. Disturbed sleep: GETTING UP 0-1 TIMES A NIGHT TO URINATE. Previous history/Previous treatment: UNREMARKABLE. Treatment this episode: PT CONSULT. Gait: NORMAL. Bowel Dysfunction: NO. Imaging: NO. PMH/Recent major surgery: UNREMARKABLE. OTHER: NOT CURRENTLY USING ANY PROTECTION/PADS. CURRENTLY. PATIENT REPORTS SHE HAD Gestational Diabetes but not no other complications with or delivery. - Objective Sitting/Standing Posture: FAIR TO GOOD. NORMAL LUMBAR LORDOSIS. NO RELEVENT LATERAL SHIFT. Active Correction of posture: BETTER. Other Observations: INDEP GAIT AND TRANSFERS. Sensory deficit: GODWIN LE LIGHT TOUCH SENSATION IS GROSSLY INTACT AND SYMMETRICAL. ROM deficit: GODWIN LE'S WFL BUT MILD GODWIN HIP ADDUCTOR AND HIP ROTATOR TIGHTNESS. Motor deficit: GODWIN LE'S GROSSLY 5/5 WITH MMT'ING EXCEPT HIPS 4/5. Dural Signs: NEGATIVE GODWIN LE'S. Lumbar mvmt loss: flex - MIN. ext - NIL. R SG - NIL. L SG - NIL. PATIENT DENIES PAIN WITH LUMBAR ROM TESTING ALL PLANES. Core strength: FAIR. Palpation: INTERNAL VAGINAL PELVIC FLOOR EXAM REVEALS WEAKNESS GRADED 2/5 WITH 3 SEC ENDURANCE. NO INTERNAL OR EXTERNAL PELVIC FLOOR TENDERNESS REPORTED WITH PALPATION. FUNCTIONAL SCREEN: Incontinence Impact Questionnaire Score: 10. Urogenital Distress Inventory Score: 8. TREATMENT: NEUROMUSCULAR REEDUCATION - RETRAINING OF MVMT AND POSTURE FOR SITTING, LYING AND STANDING ACTIVITIES. - Goals Goal 1:: DECREASE URINARY LEAKAGE EPISODES TO ONE OR LESS PER DAY Goal Time Frame: 8-12 Weeks Goal 2:: PATIENT WILL SUCCESSFULLY DELAY VOIDING FOR 10 MINUTES WHEN URGENCY OCCURS Goal Time Frame: 2-4 Weeks Goal 3:: PATIENT WILL HAVE INCREASED PELVIC FLOOR MUSCLE STRENGTH GRADE TO 5/5 Goal Time Frame: 8-12 Weeks Goal 4:: PATIENT WILL DEMONSTRATE 10 CONSISTENT AND CONSECUTIVE 10 SECOND PELVIC FLOOR MUSCLE CONTRACTIONS TO DEMONSTRATE IMPROVED PELVIC FLOOR ENDURANCE. Goal Time Frame: 8-12 Weeks Goal 5:: NORMALIZE VOIDING FREQUENCEY TO EVERY 3-4 HOURS. Goal Time Frame: 4-6 Weeks Goal 6:: PATIENT WILL BE INDEP WITH A [facility]/HOME INSTRUCTIONS FOR CONTINUED IMPROVEMENT ONCE FORMAL PHYSICAL THERAPY CONCLUDES. Goal Time Frame: 4-6 Weeks - Anticipated Interventions Patient/Client Instruction: Educate patient on: Condition, Plan of Care, Risk Factors For the Purpose of:: To improve self management Therapeutic Exercise to Include: Strength training, Endurance training, Postural training, Flexibilty training, Neuromotor development For the Purpose of:: To increase ROM, To improve muscle performance and motor function, To increase tolerance to activity/condition/position, To improve ability of physical actions for home/community/work/leisure Manual Therapy Techniques to Include: Other Comment: MANUAL BIOFEEDBACK FOR PF STRENGTHENING NEEDED. For the Purpose of:: To improve muscle performance and motor function Thank you for the opportunity to evaluate your patient. For Medicare and Medicare HMO plans, please review the plan of care and approve it. It will need to be FAXED BACK to us at [phone] for Medicare purposes. For Medicare only, by signing this I certify the plan of care. Please let me know if there are questions or concerns regarding this plan of care. Physician Signature: Date:
--- NOTE | 2022-09-30 13:04 | HP.PTDCSUM ---
It has been my pleasure to treat SURY KUMAR referred by Dr. Cynthia Okeefe MD, with the diagnosis of PELVIC FLOOR DYSFUNCTION/DISORDER OF MUSCLE for a total of 9 visit(s). Discharge Date: Please see the following information for a summary of their discharge status. Subjective: PATIENT REPORTS HER HEP IS GOING GOOD. STATES SHE IS GETTING BETTER AT THE ELEVATOR EX. I FEEL GOOD GOING INTO NEXT AND FEEL MORE PREPARED GOING FORWARD NOW. STATES SHE FEELS CONFIDENT SHE CAN CONTINUE THE EXERCISES ON HER OWN NOW. STATES SHE FEELS HER PELVIC FLOOR IS SO MUCH STRONGER NOW. PATIENT RATES HER IMPROVEMENT 90 TO 95% AND NOT 100% BECAUSE SHE STILL HAS CORE WEAKNESS BUT GETTING BETTER WITH THE EX'S. PATIENT ALSO REPORTS SHE KNOWS HOW TO PROGRSS HER EX'S NOW TOO. % Improvement: 93 Objective/Function: PATIENT DEMONSTRATED AND COMMUNICATED A GOOD UNDERSTANDING OF ALL INSTRUCTIONS AFTER GIVEN TODAY. ALL GOALS APPEAR TO BE MET. PATIENT IS APPROPRIATE FOR AND AGREEABLE TO DISCHARGE. PATIENT DEFERRED MANUAL TESTING OF PF STRENGTH TODAY STATING SHE FEELS STRONG NOW. FUNCTIONAL SCREEN: Incontinence Impact Questionnaire Score: 1. Urogenital Distress Inventory Score: 3 Goal 1:: DECREASE URINARY LEAKAGE EPISODES TO ONE OR LESS PER DAY Goal Progress: Goal Met Goal 2:: PATIENT WILL SUCCESSFULLY DELAY VOIDING FOR 10 MINUTES WHEN URGENCY OCCURS Goal Progress: Goal Met Goal 3:: PATIENT WILL HAVE INCREASED PELVIC FLOOR MUSCLE STRENGTH GRADE TO 5/5 Goal Progress: MET SUBJECTIVELY Goal 4:: PATIENT WILL DEMONSTRATE 10 CONSISTENT AND CONSECUTIVE 10 SECOND PELVIC FLOOR MUSCLE CONTRACTIONS TO DEMONSTRATE IMPROVED PELVIC FLOOR ENDURANCE. Goal Progress: MET SUBJECTIVELY Goal 5:: NORMALIZE VOIDING FREQUENCEY TO EVERY 3-4 HOURS. Goal Progress: Goal Met Goal 6:: PATIENT WILL BE INDEP WITH A HEP/HOME INSTRUCTIONS FOR CONTINUED IMPROVEMENT ONCE FORMAL PHYSICAL THERAPY CONCLUDES. Goal Progress: Goal Met Plan: D/C TO INDEP HEP AND SELF MANAGEMENT. PATIENT AGREEABLE. If there are questions or concerns regarding this patient's physical therapy, please feel free to call me at [phone]. Thank you for the referral of this patient. Sincerely, Carmelita Martinez, PT, Cert MDT
== END 2022-09-30 14:22 | disposition home or self-care (01) ==
LOC: PT 12:30
PROVIDERS: PCP Family Medicine; Referring Provider Obstetrics & Gynecology; Visit Provider Obstetrics & Gynecology
DX: M62.89 Other specified disorders of muscle (principal)
CPT/HCPCS: 97162; 97530

== ENCOUNTER → 2023-02-01 | Outpatient (CLI) | payer BC, OTHER, SELFPAY | END | disposition home or self-care (01) | PROVIDERS: PCP Family Medicine; Visit Provider Nurse Practitioner Family | DX: K62.5 Hemorrhage of anus and rectum (principal) | CPT/HCPCS: 82274 ==

== ENCOUNTER → 2023-06-14 | Outpatient (CLI) | payer BC, OTHER, SELFPAY ==
[2023-06-14 12:10] LABS: Absolute Lymphocyte Count 2.13 X10^3/uL (0.83-4.51); Absolute Neutrophil Count 3.9 X10^3/uL (2.0-7.7); Basophil# 0.04 X10^3/uL; Basophil% 0.6 % (0-1); Eosinophil# 0.11 X10^3/uL; Eosinophils% 1.7 % (0-5); Hematocrit 41.9 % (37-47); Hemoglobin 13.6 g/dL (12.0-15.0); Lymphocyte # 2.13 X10^3/ul (0.83-4.51); Lymphocyte % 32.5 % (19-41); Mean Corp Hgb Conc 32.5 g/dL (32-36); Mean Corpuscular Hgb 31.7 pg (27.0-32.0); Mean Corpuscular Volume 97.7 fL (81-99); Mean Platelet Vol. 10.6 fl (6.2-12.0); Monocyte# 0.36 X10^3/uL; Monocyte% 5.5 % (0-10); NRBC Flagged by Analyzer 0 % (0-5); Neutrophil # 3.89 X10^3/uL (2.7-7.7); Neutrophil % 59.4 % (47-70); Platelet Count 268 K/mm3 (150-450); RBC Distribution Width CV 12.7 % (11.6-14.6); RBC Distribution Width SD 45.5 fl (35.1-43.9); Red Blood Count 4.29 M/mm3 (4.2-5.4); White Blood Count 6.6 K/mm3 (4.4-11.0)
[2023-06-14 12:25] LABS: ALB/GLOB Ratio 1.2 RATIO (0.9-2.4); AST(SGOT) 14 U/L (15-37); Alanine Aminotransfer ALT/SGPT 21 U/L (13-56); Albumin, Serum 4.3 g/dL (3.2-5.0); Alkaline Phosphatase 48 U/L (45-117); Anion Gap 2 (5-15); BUN 8 mg/dL (7-18); BUN/Creat Ratio 12.9 RATIO (10-20); Calcium,Total 9.2 mg/dL (8.5-10.1); Chloride 106 mmol/L (98-107); Creatinine, Serum 0.62 mg/dL (0.55-1.02); EST Glomerular Filtration Rate 121 mL/min (>60); Est Glom Filt Rate - Afr Amer 146 mL/min (>60); Globulin 3.5 g/dL (2.2-4.2); Glucose 94 mg/dL (74-106); Potassium 3.9 mmol/L (3.5-5.1); Protein, Total 7.8 g/dL (6.4-8.2); Sodium Level 138 mmol/L (136-145)
[2023-06-14 12:55] LABS: Hemoglobin A1c 4.8 % (3.8-5.6)
== END | disposition home or self-care (01) ==
LOC: BIMLAB 10:35
PROVIDERS: PCP Internal Medicine; Visit Provider Internal Medicine
DX: Z86.32 Personal history of gestational diabetes (principal)
CPT/HCPCS: 36415; 80053; 83036; 85025

== ENCOUNTER → 2023-06-17 | Outpatient (CLI) | payer BC, OTHER, SELFPAY ==
--- NOTE | 2023-06-17 09:17 | BI_ITS ---
MAMMOGRAPHY - BILATERAL DIAGNOSTIC REASON FOR EXAM: Female, 28 years old. 2 month history of right lateral breast pain. PERTINENT HISTORY: Non-contributory. TECHNIQUE: Digital bilateral breast nancy (3D mammographic acquisition) in the CC and MLO projections. 2-D mediolateral oblique (MLO) and craniocaudad (CC) views of both breasts were obtained. CAD: Full Field Digital Mammography with Computer Added Detection was performed. COMPARISON: None. Baseline examination. FINDINGS: Breast Composition: The breasts are extremely dense, which lowers the sensitivity of mammography. There are no dominant masses or suspicious calcifications. No other significant abnormalities are identified. BI/DIAG MAMM W/CAD, BILAT IMPRESSION: Negative diagnostic mammogram. With the patient''s history of right lateral breast pain,, targeted correlation with ultrasound is recommended. ASSESSMENT CATEGORY: BIRADS Category 0: Incomplete. Need additional imaging evaluation. A letter regarding these results will be sent to the patient by the facility within 30 days. Approximately 10% of breast cancers are not detected by mammography. A normal mammogram should not delay biopsy of a clinically suspicious abnormality. Electronically Signed: Jacob Walker MD at 11:12 EDT ,
--- NOTE | 2023-06-17 09:17 | US_ITS ---
STUDY: ULTRASOUND BREAST - RIGHT REASON FOR EXAM: Female, 28 years old. Right breast pain. TECHNIQUE: Axial and longitudinal images of the RIGHT breast were performed with a high resolution ultrasound transducer. # OF IMAGES: 24 COMPARISON: Comparison is made with prior mammogram done earlier in the day. FINDINGS: RIGHT Breast: The lateral aspect of the right mid breast was examined with ultrasound. There are 2 small benign-appearing axillary lymph nodes. No solid or cystic mass lesion is seen. US/Breast Limited Unilateral IMPRESSION: 2 small benign-appearing lymph nodes are seen. Routine mammographic follow-up is recommended. ASSESSMENT CATEGORY: BIRADS Category 2: Benign. A letter regarding these results will be sent to the patient by the facility within 30 days. Electronically Signed: Jacob Walker MD at 14:32 EDT ,
== END | disposition home or self-care (01) ==
LOC: OPBI 09:16
PROVIDERS: PCP Internal Medicine; Referring Provider Internal Medicine; Visit Provider Internal Medicine
DX: N64.4 Mastodynia (principal)
CPT/HCPCS: 76642; 77062; 77066; G0279

== ENCOUNTER → 2023-09-20 | Outpatient (CLI) | payer BC, OTHER, SELFPAY | END | disposition home or self-care (01) | LOC: LABSPEC 12:42 | PROVIDERS: PCP Internal Medicine; Referring Provider Nurse Practitioner Women's Health; Visit Provider Nurse Practitioner Women's Health | DX: R30.0 Dysuria (principal) | CPT/HCPCS: 87070; 87086; 87205 ==

== ENCOUNTER 2023-10-06 10:49 | Outpatient (CLI) | payer BC, OTHER, SELFPAY ==
[2023-10-08 07:09] LABS: Chlamydia By Nucleic Acid AMP Negative (Negative); Gonococcus By Nucleic Acid AMP Negative (Negative)
[2023-10-11 17:48] LABS: HPV Reflexed? NOT INDICATED
== END 2023-10-06 23:59 | disposition home or self-care (01) ==
PROVIDERS: PCP Internal Medicine; Referring Provider Advanced Practice Midwife; Visit Provider Advanced Practice Midwife
DX: Z34.90 Encounter for supervision of normal pregnancy, unspecified, unspecified trimester (principal); Z3A.00 Weeks of gestation of pregnancy not specified; Z12.4 Encounter for screening for malignant neoplasm of cervix
CPT/HCPCS: 87086; 87491; 87591; 88175; G0145

== ENCOUNTER → 2023-10-13 | Outpatient (CLI) | payer BC, OTHER, SELFPAY ==
[2023-10-13 08:30] LABS: Absolute Neutrophil Count 3.8 X10^3/uL (2.0-7.7); Basophil# 0.04 X10^3/uL; Basophil% 0.6 % (0-1); Eosinophil# 0.09 X10^3/uL; Eosinophils% 1.5 % (0-5); Hematocrit 34.9 % (37-47); Hemoglobin 11.5 g/dL (12.0-15.0); Lymphocyte % 30.6 % (19-41); Mean Corpuscular Hgb 31.3 pg (27.0-32.0); Mean Corpuscular Volume 95.1 fL (81-99); Mean Platelet Vol. 10.4 fl (6.2-12.0); Monocyte# 0.35 X10^3/uL; Monocyte% 5.6 % (0-10); NRBC Flagged by Analyzer 0 % (0-5); Neutrophil # 3.79 X10^3/uL (2.7-7.7); Neutrophil % 61.2 % (47-70); Platelet Count 270 K/mm3 (150-450); RBC Distribution Width CV 12.5 % (11.6-14.6); RBC Distribution Width SD 43.7 fl (35.1-43.9); Red Blood Count 3.67 M/mm3 (4.2-5.4); White Blood Count 6.2 K/mm3 (4.4-11.0)
[2023-10-13 09:48] LABS: HIV - WCH Non-Reactive (Nonreactive); Hemoglobin A1c 5.1 % (3.8-5.6); Hepatitis B Surface Antigen Non-Reactive (Nonreactive); Hepatitis C Antibody Non-Reactive (Nonreactive); Rubella IgG Reactive (Nonreactive); Syphilis Antibodies Non-reactive
== END | disposition home or self-care (01) ==
PROVIDERS: PCP Internal Medicine; Referring Provider Advanced Practice Midwife; Visit Provider Advanced Practice Midwife
DX: Z34.81 Encounter for supervision of other normal pregnancy, first trimester (principal); Z3A.00 Weeks of gestation of pregnancy not specified
CPT/HCPCS: 36415; 83036; 85025; 86703; 86762; 86780; 86803; 86850; 86900; 86901; 87340

== ENCOUNTER → 2024-02-15 | Outpatient (CLI) | payer BC, OTHER, SELFPAY ==
[2024-02-15 09:46] LABS: Absolute Lymphocyte Count 1.14 X10^3/uL (0.83-4.51); Absolute Neutrophil Count 5.6 X10^3/uL (2.0-7.7); Basophil# 0.03 X10^3/uL; Basophil% 0.4 % (0-1); Eosinophil# 0.07 X10^3/uL; Hematocrit 33.2 % (37-47); Hemoglobin 10.9 g/dL (12.0-15.0); Lymphocyte # 1.14 X10^3/ul (0.83-4.51); Lymphocyte % 15.8 % (19-41); Mean Corp Hgb Conc 32.8 g/dL (32-36); Mean Corpuscular Hgb 31.8 pg (27.0-32.0); Mean Corpuscular Volume 96.8 fL (81-99); Monocyte# 0.34 X10^3/uL; Monocyte% 4.7 % (0-10); NRBC Flagged by Analyzer 0 % (0-5); Neutrophil % 77.4 % (47-70); Platelet Count 206 K/mm3 (150-450); RBC Distribution Width CV 13.5 % (11.6-14.6); RBC Distribution Width SD 48.2 fl (35.1-43.9); Red Blood Count 3.43 M/mm3 (4.2-5.4); White Blood Count 7.2 K/mm3 (4.4-11.0)
[2024-02-15 10:23] LABS: Glucose Challenge Gest 1H 50g 94 mg/dL (70-140)
[2024-02-16 16:09] LABS: HIV - WCH Non-Reactive (Nonreactive); Syphilis Antibodies Non-reactive
== END | disposition home or self-care (01) ==
LOC: PAVLAB 09:21
PROVIDERS: PCP Internal Medicine; Referring Provider Obstetrics & Gynecology; Visit Provider Obstetrics & Gynecology
DX: O09.90 Supervision of high risk pregnancy, unspecified, unspecified trimester (principal); O26.899 Other specified pregnancy related conditions, unspecified trimester; Z67.91 Unspecified blood type, Rh negative; Z13.1 Encounter for screening for diabetes mellitus
CPT/HCPCS: 36415; 82950; 85025; 86703; 86780; 86850; 86900; 86901

== ENCOUNTER → 2024-04-17 | Outpatient (CLI) | payer BC, OTHER, SELFPAY ==
[2024-04-17 16:41] LABS: Absolute Lymphocyte Count 2.11 X10^3/uL (0.83-4.51); Absolute Neutrophil Count 6.5 X10^3/uL (2.0-7.7); Basophil# 0.03 X10^3/uL; Basophil% 0.3 % (0-1); Eosinophil# 0.09 X10^3/uL; Hemoglobin 12.2 g/dL (12.0-15.0); Lymphocyte # 2.11 X10^3/ul (0.83-4.51); Lymphocyte % 22.5 % (19-41); Mean Corpuscular Hgb 31.4 pg (27.0-32.0); Mean Corpuscular Volume 95.1 fL (81-99); Mean Platelet Vol. 10.6 fl (6.2-12.0); Monocyte# 0.64 X10^3/uL; Monocyte% 6.8 % (0-10); NRBC Flagged by Analyzer 0 % (0-5); Neutrophil # 6.45 X10^3/uL (2.7-7.7); Neutrophil % 68.7 % (47-70); Platelet Count 185 K/mm3 (150-450); RBC Distribution Width CV 13.4 % (11.6-14.6); RBC Distribution Width SD 46.6 fl (35.1-43.9); Red Blood Count 3.89 M/mm3 (4.2-5.4); White Blood Count 9.4 K/mm3 (4.4-11.0)
== END | disposition home or self-care (01) ==
LOC: LAB 16:13 → LABSPEC 17:12
PROVIDERS: PCP Internal Medicine; Referring Provider Nurse Practitioner Women's Health; Visit Provider Nurse Practitioner Women's Health
DX: O99.013 Anemia complicating pregnancy, third trimester (principal); Z3A.36 36 weeks gestation of pregnancy
CPT/HCPCS: 36415; 85025; 87081

== ENCOUNTER → 2024-05-03 | Outpatient (CLI) | payer BC, OTHER, SELFPAY ==
--- NOTE | 2024-05-03 14:23 | US_ITS ---
STUDY: SECOND AND THIRD TRIMESTER OBSTETRICAL ULTRASOUND - LIMITED REASON FOR EXAM: Female, 28 years old size less than dates LMP: August 03, 2023. PRIOR ULTRASOUND: None. TECHNIQUE: Transabdominal TECHNICAL QUALITY: Adequate. FINDINGS: There is a single intrauterine fetus. The fetus is in a cephalic presentation. There is demonstrated cardiac activity with a heart rate of 141 bpm. There is a normal amniotic fluid volume. The largest amniotic fluid pocket measures 4.9 cm. The amniotic fluid index (AUSTIN) is 11 cm. The placenta is posterior in location and is not low lying. There are Grade 2 placental changes. BIOMETRY: BPD: 9.14 cm: 37 weeks, 1 days. 29% HC: 33.42 cm: 38 weeks, 1 days. 18.8% AC: 34.1 cm: 38 weeks, 0 days. 40.4% FL: 7.28 cm: 37 weeks, 2 days. 14.8% Age by LMP: 39 weeks, 1 days. OLGA by LMP: May 09, 2024. age by current US: 37 weeks, 3 days. OLGA by current US: May 21, 2024. Estimated weight: 3303 grams, +/- 495 grams, 36 percentile. US/OB Limited With Biometrics IMPRESSION: Single live intrauterine gestation with a mean gestational age of 39 weeks and 1 day. The measurements obtained today fall within normal expected range. Electronically Signed: Jacob Walker MD at 10:28 EDT ,
== END | disposition home or self-care (01) ==
LOC: US 14:22
PROVIDERS: PCP Internal Medicine; Referring Provider Advanced Practice Midwife; Visit Provider Advanced Practice Midwife
DX: O26.849 Uterine size-date discrepancy, unspecified trimester (principal); Z3A.00 Weeks of gestation of pregnancy not specified
CPT/HCPCS: 76816

== ENCOUNTER 2024-05-13 12:30 | Inpatient (IN) | payer BC, OTHER, SELFPAY ==
[2024-05-13] VITALS (30 sets, daily range): BP systolic 98–114; BP diastolic 59–67; PULSE 79–103; RESP 14–16; TEMP 36.5–36.7; O2SAT 91–100; BMI 26.2
[2024-05-13] MEDS: Lactated Ringers 1,000 ML 999 ML IV (12:55)
[2024-05-13 13:04] LABS: Absolute Lymphocyte Count 0.95 X10^3/uL (0.83-4.51); Absolute Neutrophil Count 9.6 X10^3/uL (2.0-7.7); Basophil# 0.02 X10^3/uL; Basophil% 0.2 % (0-1); Hematocrit 36.7 % (37-47); Hemoglobin 12.3 g/dL (12.0-15.0); Lymphocyte # 0.95 X10^3/ul (0.83-4.51); Lymphocyte % 8.8 % (19-41); Mean Corp Hgb Conc 33.5 g/dL (32-36); Mean Corpuscular Hgb 31.6 pg (27.0-32.0); Mean Corpuscular Volume 94.3 fL (81-99); Mean Platelet Vol. 10.9 fl (6.2-12.0); Monocyte# 0.22 X10^3/uL; NRBC Flagged by Analyzer 0 % (0-5); Neutrophil # 9.55 X10^3/uL (2.7-7.7); Neutrophil % 88.6 % (47-70); Platelet Count 201 K/mm3 (150-450); RBC Distribution Width CV 13.1 % (11.6-14.6); RBC Distribution Width SD 45.1 fl (35.1-43.9); Red Blood Count 3.89 M/mm3 (4.2-5.4); White Blood Count 10.8 K/mm3 (4.4-11.0)
[2024-05-13] MEDS: Oxytocin 15 Units/NS 250ml 15 UNITS/250 ML IV.SOLN 334 UNITS IV (13:26)
--- NOTE | 2024-05-13 13:39 | HP.PCM.OB_ITS ---
HPI - General General Date of Admission: 05/13/24 HPI Narrative SURY KUMAR, is a 28 F who presents at 40.4 with contractions since 0130, no lof. active fetus. Maternal Data Information OLGA Calculator Estimated Delivery Date Method Current WG Current Estimate 05/09/24 LMP (Certain) 40w 4d PFSH PFSH Medical History Hx of breast lump Chemical Gastrointestinal complaints (08/15/12) Gestational diabetes (09/15/21) Vaginal delivery Lab test positive for detection of COVID-19 virus Home Medications ?Medication ?Instructions ?Recorded ?Last Taken ?Type lactobacillus comb no.10 20 20,000 mmu cells PO DAILY 06/14/23 Unknown History billion cell capsule (Probiotic) vitamin #56-iron 35 mg 1 cap PO DAILY 06/14/23 Unknown History and 5 mg-folic acid 1 mg-dha capsule ferrous sulfate 325 mg (65 mg 325 mg PO QDAY 05/09/24 Unknown History iron) tablet Allergy/AdvReac Type Severity Reaction Status Date / Time No Known Allergies Allergy Verified 05/13/24 12:52 Family History Grandfather Diabetes Skin cancer Arthritis Father Hypertension Mother Arthritis Scoliosis Juvenile rheumatoid arthritis in remission Sister Arthritis Scoliosis Juvenile rheumatoid arthritis in remission Grandmother Alzheimer disease Surgical History History of tonsillectomy History of colonoscopy (04/19/23) H/O adenoidectomy H/O wisdom tooth extraction Social History adopted: No household members: spouse and children housing: house number of children: 1 current occupational status: employed 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 Date Name GA/Weeks Outcome Route Bth Weight Gen Labor Lgth Anesthesia Del Locatn Provider FOB Unknown 08/2020 chemical 5 spontaneous 01/15/22 Alberto 40 live - full term 7lbs 2oz Male [facility] Dr. Sary Santiago Delivery Date: 01/15/22 Last Updated by: Keyonna Cruz Gestational diabetes-diet controlled Visit Details Expected Delivery Route/Plan Labor Preferences- CB/BF classes: no labor support person: Jack labor intervention preferences: [] pain management options preferred: epidural cut cord/dad catch: cord : yes PP control planned: discussed discussed possible routes of delivery and associated risks: [] special requests: [] Plans Covid status: [] Flu vaccine: [] Tdap vaccine: given Rhogam: 02/15/24 LARC form signed: 02/15/24 movement and labor precautions reviewed. Problem list reviewed and updated with the most current plan of care details and appropriate orders placed. Relevant counseling for the gestational age provided. Continue routine care and follow up unless otherwise noted in visit notes/problem list details OB Flowsheet Initial Weight: Not Recorded Date -?-?-?-?-?-?-?-?-?-?-?-?- EGA Weight BP Urine Prot -?-?-?-?-?-?-?-?-?-?-?-?- Glucose FHR FuHt Pres Dilation -?-?-?-?--?-?-?-?-?-?-?-?- Effaced St Visit Note 10/06/23 -?-?-?-?-?-?-?-?-?-?-?-?- 9w 1d 125 lb 110/64 -?-?-?-?-?-?-?-?-?-?-?-?- 185 -?-?-?-?-?-?-?-?-?-?-?-?- KW-CRL cons with dates. doing well. no concerns. NIPT accepted. 11/03/23 -?-?-?-?-?-?-?-?-?-?-?-?- 13w 1d 128 lb 107/70 Negative -?-?-?-?-?-?-?-?-?-?-?-?- 250 g/dL 160 -?-?-?-?-?-?-?-?-?-?-?-?- SM- no vb crampi ng 11/28/23 -?-?-?-?-?-?-?-?-?-?-?-?- 16w 5d 124 lb 118/79 Negative -?-?-?-?-?-?-?-?-?-?-?-?- 250 g/dL 155 -?-?-?-?-?-?-?-?-?-?-?-?- LC- no vb/crampi ng. declines afp. testing glucose. LC- no vb/cramping. declines afp. testing glucose at home, all fasting under 95, occ pp over 120. no dx of GDM but had previously. 12/28/23 -?-?-?-?-?-?-?-?-?-?-?-?- 21w 0d 130 lb 108/68 Negative -?-?-?-?-?-?-?-?-?-?-?-?- Negative 145 -?-?-?-?-?-?-?-?-?-?-?-?- JV- normal anato my scan. has marginal insertion of cord. no complaints. wants gender to be a surprise. 01/25/24 -?-?-?-?-?-?-?-?-?-?-?-?- 25w 0d 130 lb 6 oz 108/68 Nega tive -?-?-?-?-?-?-?-?-?-?-?-?- Negative 150 26 -?-?-?-?-?-?-?-?-?-?-?-?- JV- pt prefers t he fresh test. will pick that up. rto in 3 weeks for rhogam + tdap. no complaints today 02/15/24 -?-?-?-?-?-?-?-?-?-?-?-?- 28w 0d 134 lb 2 oz 110/62 Nega tive -?-?-?-?-?-?-?-?-?-?-?-?- Negative 146 28 -?-?-?-?-?-?-?--?-?-?-?-?- MH-No VB, LOF. G ood FM. Tdap, rhogam, larc 02/27/24 -?-?-?-?-?-?-?-?-?-?-?-?- 29w 5d 133 lb 8 oz 103/66 Nega tive -?-?-?-?-?-?-?-?-?-?-?-?- Negative 148 30 -?-?-?-?-?-?-?-?-?-?-?-?- JV- no lof, vagi nal bleeding,or dec fm. no complaints. 03/15/24 -?-?-?-?-?-?-?-?-?-?-?-?- 32w 1d 137 lb 2 oz 97/64 Nega tive -?-?-?-?-?-?-?-?-?-?-?-?- Negative 145 32 -?-?-?-?-?-?-?-?-?-?-?-?- Sm- no vb lof go od fm no regular ctx 03/29/24 -?-?-?-?-?-?-?-?-?-?-?-?- 34w 1d 136 lb 90/61 Negative -?-?-?-?-?-?-?-?-?-?-?-?- Negative 130 34 -?-?-?-?-?-?-?-?-?-?-?-?- kw-no vb/lof/ctx . good fm. doing well. GBS next visit 04/09/24 -?-?-?-?-?-?-?-?-?-?-?-?- 35w 5d 139 lb 2 oz 98/62 Nega tive -?-?-?-?-?-?-?-?-?-?-?-?- Negative 145 35 -?-?-?-?-?-?-?-?-?-?-?-?- JV- planning gbs at 36 weeks, no lof, vaginal bleeding, or dec fm. 04/17/24 -?-?-?-?-?-?-?-?-?-?-?-?- 36w 6d 139 lb 8 oz 94/62 Nega tive -?-?-?-?-?-?-?-?-?-?-?-?- Negative 138 36 -?-?-?-?-?-?-?-?-?-?-?-?- -No VB, LOF. G ood FM. GBS done. No CTX. 04/27/24 -?-?-?-?-?-?-?-?-?-?-?-?- 38w 2d 140 lb 2 oz 112/68 Nega tive -?-?-?-?-?-?-?-?-?-?-?-?- Negative 120 36 Cephalic -?-?-?-?-?-?-?-?-?-?-?-?- kw- work in for SM. no vb/lof/reg ctx. good fm. US ordered for decreased fundal height kw- work in for SM. no vb/lo f/reg ctx. good fm. AUSTIN 12 done by . kw- work in for SM. no vb/lo f/reg ctx. good fm. AUSTIN 12 done by . US ordered for S<D 05/04/24 -?-?-?-?-?-?-?-?-?-?-?-?- 39w 2d 139 lb 115/78 Negative -?-?-?-?-?-?-?-?-?-?-?-?- Negative 140 36 Cephalic 1 -?-?-?-?-?-?-?-?-?-?-?-?- 50 -2 KW- no vb/ lof/ctx. good fm. growth normal and normal austin yesterday 05/09/24 -?-?-?-?-?-?-?-?-?-?-?-?- 40w 0d 139 lb 103/69 Negative -?-?-?-?-?-?-?-?-?-?-?-?- Negative 130 35 Cephalic 1 .5 -?-?-?-?-?-?-?-?-?-?-?-?- 50 -2 Sm- no vb lof good fm no reuglar ctx bedside AUSTIN 10+ cm NST FHR Rate Baby A Baseline: 130 Variability:: Moderate Accelerations:: 15 x 15 Decelerations:: None NST Reactive:: Yes FHR Category:: Category I Uterine Activity:: q2-3 ROS Cardiovascular Cardiovascular: Denies abdominal pain, chest pain, diaphoresis or dyspnea Respiratory/Chest Respiratory/Chest: Denies change in mental status, chest congestion, chest tightness, cough, shortness of breath at rest, shortness of breath with exertion, breast mass, breast pain, breast skin changes, breast swelling, change in breast shape or nipple discharge Genitourinary Genitourinary: Reports change in urinary stream Musculoskeletal Musculoskeletal: Reports none Integumentary Integumentary: Reports none Neurologic Neurologic: Reports none Psychiatric Psychiatric: Reports none Endocrine Endocrinology: Reports none Hematologic/Lymphatic Hematologic/Lymphatic: Reports none Allergic/Immunologic Allergic/Immunologic: Reports none Vital Signs Vital Signs Vital Signs: 05/13/24 13:32 05/13/24 13:32 05/13/24 13:32 Pulse Rate 91 Blood Pressure 103/59 L BP Systolic 103 BP Diastolic 59 Pulse Ox 98 05/13/24 13:34 05/13/24 13:34 Pulse Rate 90 Blood Pressure BP Systolic BP Diastolic Pulse Ox 91 Weight Weight: 138 lb 14.259 oz Body Mass Index (BMI) 26.2 Physical Exam Const alert, oriented x3 and no apparent distress General Appearance: cooperative, comfortable and well kempt Orientation / Consciousness: awake and oriented to person Exam Limitations: no limitations HEENT normocephalic Neck full ROM Chest inspection of chest normal Resp normal respiratory effort, normal air movement and no retractions Effort and Inspection: able to speak in complete sentences and symmetric chest movement Cardio regular rate Peripheral Pulses: pulses 2+ throughout GI normal to inspection, nondistended, normoactive bowel sounds Inspection: gravid no CVA tenderness and appearance of the vagina normal External Female Exam: normal appearance of the urethra; Negative for external lesion OB / External & Speculum: external exam normal Manual OB Exam: estimated gestational size appropriate and presentation cephalic Uterus Palpation: Negative for uterus tender Extremity normal to inspection Skin no rashes or lesions noted Neuro deep tendon reflexes 2+ bilaterally and gait normal Motor Exam: strength 5/5 throughout and clonus absent Psych Activity / Motor Behavior: appropriate eye contact Speech: normal speech Labs Labs Labs: Blood Type O NEGATIVE Antibody Screen NEGATIVE Hct 36.7 % (37-47) L Hgb 12.3 g/dL (12.0-15.0) Pap Smear Negative Obstetrics Ultrasound Syphilis Total Ab Non-reactive Rubella IgG Antibody Reactive (Nonreactive) Hep Bs Antigen Non-Reactive (Nonreactive) Hepatitis C Antibody Non-Reactive (Nonreactive) Chlamydia DNA (KARENA) Negative (Negative) N.gonorrhoeae DNA (KARENA) Negative (Negative) HIV 1&2 Antibody Non-Reactive (Nonreactive) Glucose 1 Hr 50 gm 94 mg/dL (70-140) Gest Glucose Tolerance MG/DL Rhogam given: Yes Assessment & Plan (1) Spontaneous onset of labor: COMMENT: 6cm. IAL PLAN: admit in active labor, desires epidural (2) Uterine size date discrepancy : COMMENT: size less than dates (3) Anemia in preg-unspec: QUALIFIERS: Trimester: third trimester Qualified Code(s): O99.013 - Anemia complicating , third trimester COMMENT: Add Fe; Rpt CBC:resolved (4) Rh negative status during : QUALIFIERS: Trimester: third trimester Qualified Code(s): O26.893 - Other specified related conditions, third trimester; Z67.91 - Unspecified blood type, Rh negative COMMENT: O Negative, Rhogam @ 28 wks & PRN Bleeding. is Rh positive. Rhogam given 02/15/2024 (5) Hx of gestational diabetes in prior , currently : COMMENT: A1C with NOB labs (6) Supervision of high-risk : QUALIFIERS: Trimester: third trimester Qualified Code(s): O09.93 - Supervision of high risk , unspecified, third trimester COMMENT: PRR , OLGA 05/09/24, surprise PC Daljit, Jack (7) : QUALIFIERS: Weeks of gestation: 40 weeks Qualified Code(s): Z3A.40 - 40 weeks gestation of COMMENT: Neg GBS. anatomy nl, discussed genetic & declined carrier testing, NIPT low risk. declined afp screen. nl growth & austin PLAN: Plan Patient presents IOL, plan management for with pitocin/AROM. Pain management: plans epidural. GBS negative. Management of any complications: none I have reviewed the [facility] and made any clinically relevant updates. dr. Edgar updated on admission, exam and poc.
--- NOTE | 2024-05-13 13:41 | EX.PCM.OBRPT ---
Assessment & Plan (1) (spontaneous vaginal delivery): COMMENT: MADIE gibson IAL- Maternal Data Information OLGA Calculator Estimated Delivery Date Method Current WG Current Estimate 05/09/24 LMP (Certain) 40w 4d Final OLGA: 05/09/24 Final OLGA Source: LMP Vaginal Delivery Maternal Presentation Maternal Presentation: Active Labor Maternal Presentation: at 40.4 in active labor Operative Information Date of Procedure: 05/13/24 Pre-Operative Diagnosis: see problem list Post-Operative Diagnosis: Surgery / Procedure Performed: Spontaneous Vaginal Delivery Type of Anesthesia: None Estimated Blood Loss: 300 Time of Delivery: 13:22 Findings Description of Procedure: Patient began pushing and delivered the head in the CARYL presentation. The head was delivered atraumatically. The anterior and posterior shoulders delivered without complication followed by the rest of the and the was placed on the maternal abdomen. Delayed cord clamping was employed for approximately 60 seconds. Cord was clamped and cut and gentle traction was applied to the cord and the placenta delivered spontaneously immediately following it was noted to be intact with three-vessel cord. The perineum and vagina were inspected and noted to have no laceration. EBL was 300cc. Patient and infant tolerated delivery well. updated on delivery. Presentation: Vertex Amniotic Membrane Rupture Type: Spontaneous Amniotic Fluid Description: Lightly stained meconium Placental Delivery Description: Spontaneous Placenta Disposition: [facility] Cord Vessel Description: 3 Vessels Cord Entanglement: None A Gender: Male (1 minute): 9 (5 minute): 9 Delayed Cord Clamping: Yes Post Vaginal Delivery Medications Given After Delivery: IV Pitocin Episiotomy Description: None Laceration: None Procedures Urinary/Genital [id number]: [id number] Vaginal Delivery [facility]
--- NOTE | 2024-05-13 13:46 | DCINST_ITS ---
Discharge Instructions Diet Discharge Diet: No restrictions Activity Discharge Activity: May Not Drive and May Shower May resume sexual activity in: 6 weeks Weight Bearing Status: Full weight bearing Dressing / Incision Call your doctor if your incision/area has: Sudden Increased Bleeding, Increased Pain/ Swelling and Foul Smelling Discharge Call your doctor if you observe: Fever of 101 or Higher, Numbness or Tingling, Change in Color, Inability to urinate, Inability to have a bowel movement, Using more than 1 pad per hour, Shortness of breath, Dizziness, Fainting spells, Chest pain, Calf discomfort and Uncontrolled pain Follow Up Care Please Follow Up With: Erica Woods CNM When: 6 weeks , please call office to make an appointment. Congratulations on the of your baby! Test Results: Test results from this visit will be discussed in further detail at your follow- up appointment, if applicable. Discharge Plan Admission Admit Date/Time: 05/13/24 12:30 Attending Provider: Erica Woods Primary Care Provider: Cat Moreno Discharge Orders/Prescriptions Prescriptions: No Action PNV #[id number] acid-dha 35 mg iron-5 mg iron-1 mg capsule 1 cap PO DAILY Probiotic 20 billion cell capsule 20,000 mmu cells PO DAILY Rx Instructions: administer with a meal ferrous sulfate 325 mg (65 mg iron) tablet 325 mg PO QDAY Referrals / Follow Up: Cat Moreno MD [Primary Care Provider] -
[2024-05-13 14:04] LABS: Syphilis Antibodies Non-reactive
[2024-05-13] MEDS: Oxytocin 15 Units/NS 250ml 15 UNITS/250 ML IV.SOLN 83 UNITS IV (14:11)
[2024-05-13] MEDS: Naproxen 500 MG Tablet PO ×2 (14:38→23:16)
[2024-05-14 04:25] VITALS: BP 99/63; PULSE 77; RESP 16; TEMP 36.8; O2SAT 96
[2024-05-14 04:29] VITALS: BP 99/63; PULSE 79; O2SAT 96
--- NOTE | 2024-05-14 07:44 | PCM.PN.OB ---
Subjective Subjective Patient doing well without complaints. Tolerating PO. Ambulating and voiding without difficulty. Feeding well. Denies chest pain, shortness of breath, calf pain/swelling, fevers, chills, lightheadedness. Objective Data Objective Data Vital Signs: Vital Signs Temp Pulse Resp BP Pulse Ox O2 Del Method 98.2 F 79 16 99/63 96 Room Air 05/14/24 04:25 05/14/24 04:05/14/24 04:25 05/14/24 04:05/14/24 04:05/14/24 04:25 Oxygen Delivery Method Room Air Weight: 138 lb 14.259 oz Body Mass Index (BMI) 26.2 Intake & Output: Intake and Output for Last 24 Hours 05/12/24 05/13/24 05/14/24 23:59 23:59 23:59 Intake Total 1716.15 / 1716.15 Output Total 1300 / 1300 Balance 416.15 / 416.15 Lab / Micro Data 05/13/24 12:55 Labs: Laboratory Results - last 24 hr 05/13/24 12:55: WBC 10.8, RBC 3.89 L, Hgb 12.3, Hct 36.7 L, MCV 94.3, MCH 31.6, MCHC 33.5, RDW Std Deviation 45.1 H, RDW Coeff of Haydee 13.1, Plt Count 201, MPV 10.9, Immature Gran % (Auto) 0.400, Neut % (Auto) 88.6 H, Lymph % (Auto) 8.8 L, [place] % (Auto) 2.0, Eos % (Auto) 0.0, Baso % (Auto) 0.2, Absolute Neuts (auto) 9.6 H, Absolute Lymphs (auto) 0.95, Nucleated RBC % 0, Syphilis Total Ab Non-reactive, Blood Type O NEGATIVE, Antibody Screen NEGATIVE ROS Constitutional Constitutional: Reports systems reviewed and no addt'l complaints, except as documented; Denies anorexia or headache(s) Cardiovascular Cardiovascular: Reports systems reviewed and no addt'l complaints, except as documented; Denies dizziness, dyspnea, nausea or tachypnea Respiratory/Chest Respiratory/Chest: Reports systems reviewed and no addt'l complaints, except as documented; Denies cough, dyspnea, shortness of breath at rest or tachypnea Gastrointestinal Gastrointestinal: Reports systems reviewed and no addt'l complaints, except as documented; Denies abdominal pain, constipation or nausea Genitourinary Genitourinary: Reports systems reviewed and no addt'l complaints, except as documented; Denies burning urination, difficulty urinating, dysuria, urinary frequency or urinary incontinence Musculoskeletal Musculoskeletal: Reports systems reviewed and no addt'l complaints, except as documented Integumentary Integumentary: Reports systems reviewed and no addt'l complaints, except as documented Neurologic Neurologic: Reports systems reviewed and no addt'l complaints, except as documented; Denies abnormal speech, dizziness or headache(s) Psychiatric Psychiatric: Reports systems reviewed and no addt'l complaints, except as documented Endocrine Endocrinology: Reports systems reviewed and no addt'l complaints, except as documented Hematologic/Lymphatic Hematologic/Lymphatic: Reports systems reviewed and no addt'l complaints, except as documented Physical Exam Const alert, oriented x3 and no apparent distress Neck full ROM Resp normal respiratory effort, normal air movement and no retractions Effort and Inspection: able to speak in complete sentences and symmetric chest movement GI soft to palpation Bladder / Kidney Exam: bladder normal to palpation Uterus Palpation: uterus fundus firm Extremity normal to inspection and full ROM Psych mental status grossly normal, thought process normal and cooperative Assessment & Plan (1) (spontaneous vaginal delivery): COMMENT: MADIE boy IAL- PLAN: s/p PPD # 1 1. routine post delivery care 2. breast feeding- support given 3. rh positive 4. rubella immune 5. Discharge home (2) Spontaneous onset of labor: COMMENT: 6cm. IAL (3) Uterine size date discrepancy : COMMENT: size less than dates (4) Anemia in preg-unspec: QUALIFIERS: Trimester: third trimester Qualified Code(s): O99.013 - Anemia complicating , third trimester COMMENT: Add Fe; Rpt CBC:resolved (5) Rh negative status during : QUALIFIERS: Trimester: third trimester Qualified Code(s): O26.893 - Other specified related conditions, third trimester; Z67.91 - Unspecified blood type, Rh negative COMMENT: O Negative, Rhogam @ 28 wks & PRN Bleeding. is Rh positive. Rhogam given 02/15/2024 (6) Hx of gestational diabetes in prior , currently : COMMENT: A1C with NOB labs (7) Supervision of high-risk : QUALIFIERS: Trimester: third trimester Qualified Code(s): O09.93 - Supervision of high risk , unspecified, third trimester COMMENT: PRR , OLGA 05/09/24, surprise PC Daljit, Jack (8) : QUALIFIERS: Weeks of gestation: 40 weeks Qualified Code(s): Z3A.40 - 40 weeks gestation of COMMENT: Neg GBS. anatomy nl, discussed genetic & declined carrier testing, NIPT low risk. declined afp screen. nl growth & chely Charges/Coding Multi Select Codes Urinary/Genital Urinary/Genital CPT Codes: No Charge
[2024-05-14 09:13] VITALS: BP 112/67; PULSE 91
[2024-05-14 09:18] VITALS: BP 112/67; PULSE 91; RESP 16; TEMP 36.6
[2024-05-14 13:00] VITALS: BP 108/75; PULSE 80; RESP 16; TEMP 36.3
[2024-05-14 13:38] VITALS: BP 108/75; PULSE 82
== END 2024-05-14 15:15 | disposition home or self-care (01) | DRG 807 ==
PROVIDERS: Admitting Provider Registered Nurse; PCP Internal Medicine; Visit Provider Registered Nurse
DX: O48.0 Post-term pregnancy (principal); Z37.0 Single live birth; O26.843 Uterine size-date discrepancy, third trimester; O77.0 Labor and delivery complicated by meconium in amniotic fluid; Z67.91 Unspecified blood type, Rh negative; Z3A.40 40 weeks gestation of pregnancy; Z86.16 Personal history of COVID-19; Z86.32 Personal history of gestational diabetes
CPT/HCPCS: 59025; 59050; 85025; 86780; 86850; 86900; 86901; 99221; J7120; G0378

== ENCOUNTER → 2024-09-03 | Outpatient (CLI) | payer BC, OTHER, SELFPAY | END | disposition home or self-care (01) | LOC: BWCLAB 13:36 → LABSPEC 09-07 16:01 | PROVIDERS: PCP Internal Medicine; Referring Provider Nurse Practitioner Women's Health; Visit Provider Nurse Practitioner Women's Health | DX: N89.8 Other specified noninflammatory disorders of vagina (principal) | CPT/HCPCS: 87070; 87205 ==

== ENCOUNTER → 2024-12-17 | Outpatient (CLI) | payer BC, OTHER, SELFPAY ==
[2024-12-19 09:08] LABS: Lead, Blood Adult 16+yrs < 1.0 ug/dL (0.0-3.4)
== END | disposition home or self-care (01) ==
LOC: MFPLAB 12:07
PROVIDERS: PCP Family Medicine; Referring Provider Family Medicine; Visit Provider Family Medicine
DX: R53.83 Other fatigue (principal)
CPT/HCPCS: 36415; 83655

== ENCOUNTER → 2024-12-25 | Outpatient (CLI) | payer BC, OTHER, SELFPAY | END | disposition home or self-care (01) | LOC: LABSPEC 14:08 | PROVIDERS: PCP Family Medicine; Referring Provider Registered Nurse; Visit Provider Registered Nurse | DX: N89.8 Other specified noninflammatory disorders of vagina (principal) | CPT/HCPCS: 87070; 87077; 87186; 87205 ==